=== PATIENT | female | born 1990 | race Caucasian/White ===

== ENCOUNTER 2017-02-27 16:22 | Inpatient (IN) | payer MEDICAID ==
[~2017-02-27] VITALS: Ht 149.9 cm; Wt 64.7 kg
[2017-03-05 16:34] VITALS: Ht 149.9 cm; Wt 64.7 kg
[2017-03-05 16:35] VITALS: BP 135/89; PULSE 86; RESP 16
[2017-03-05] MEDS ORDERED: CARBOPROST 250 MCG INJ IM PRN (17:00)
[2017-03-05] MEDS ORDERED: HYDROCODONE/APAP (5/325) TAB PO PRN (17:00)
[2017-03-05] MEDS ORDERED: OXYTOCIN 30 UNITS/LR 500 ML IV SCH ×2 (17:00→18:00)
[2017-03-05] MEDS ORDERED: OXYTOCIN 30 UNITS/LR 500 ML IV PRN (17:00)
[2017-03-05] MEDS ORDERED: BUTORPHANOL 2 MG INJ IV PRN (17:00)
[2017-03-05] MEDS ORDERED: IBUPROFEN 600 MG TAB PO PRN (17:00)
[2017-03-05] MEDS ORDERED: DINOPROSTONE 10 MG VAG SUPP VAG ONE (17:00)
[2017-03-05] MEDS ORDERED: MISOPROSTOL 200 MCG TAB PR PRN (17:00)
[2017-03-05] MEDS ORDERED: LIDOCAINE 1% (MPF) 30 ML INJ INJ PRN (17:00)
[2017-03-05] MEDS ORDERED: METHYLERGONOVINE 0.2 MG INJ IM PRN (17:00)
[2017-03-05] MEDS: LACTATED RINGER'S 1,000 ML IV SCH ×2 (17:09→22:38)
--- NOTE | 2017-03-05 17:24 | RADRPT ---
PROCEDURE: US OB. CLINICAL INDICATION: Post dates. TECHNIQUE: Multiple sonographic images of the uterus were obtained. The images were revi ewed on a PACS workstation. COMPARISON: No prior studies are available for comparison. FINDINGS: There is a single live intrauterine gestation. heart rate is 143 beats per minute. Measurements were made in order to determine age. The results are as follows: BPD = 9.09 cm. HC = 33.03 cm. AC = 34.79 cm. FL = 7.52 cm. Estimated weight is 3449 +/- 517 grams. LMP growth percentile is 26 %. Menstrual age by ultrasound dates is 37 weeks 6 days. The estimated date of delivery is 03/20/2017. Position is cephalic and placenta is anterior fundal grade III. There is no evidence for an abruptio n or placenta previa. IMPRESSION: 1. Single live intrauterine gestation of 37 weeks 6 days menstrual age by ultrasound dates. 2. The estimated date of delivery is 03/20/2017. RPTAT: QQ .Maynor Linares MD, Date Time Electronically viewed and signed by .Maynor Linares MD, on 03/05/2017 17:24 .R/
--- NOTE | 2017-03-05 17:28 | RADRPT ---
PROCEDURE: US biophysical profile. CLINICAL INDICATION: Post dates. TECHNIQUE: Multiple sonographic images of the uterus were obtained. The images were revi ewed on a PACS workstation. COMPARISON: No prior studies are available for comparison. FINDINGS: There is a single live intrauterine gestation. heart rate is 143 beats per minute. The position is cephalic. The placenta is fundal anterior grade III with no abruption or previa. The ADRIA is 0.8 cm. (Normal = 5-20 cm.) Breathing Movement: 2 Gross Body Movement: 2 Tone: 2 Qualitative Amniotic Fluid Volume: 0 TOTAL: 6 IMPRESSION: 1. The biophysical score is 6/8. 2. Oligohydramnios. RPTAT: QQ .Maynor Linares MD, Date Time Electronically viewed and signed by .Maynor Linares MD, on 03/05/2017 17:28 .R/
[2017-03-05] MEDS ORDERED: LACTATED RINGER'S 1,000 ML IV PRN (19:00)
[2017-03-05] MEDS ORDERED: TERBUTALINE 1 ML ONE (22:15)
[2017-03-05] MEDS ORDERED: TERBUTALINE 1 MG/ML INJ SC ONE (22:30)
[2017-03-06] VITALS (11 sets, daily range): BP systolic 116–154; BP diastolic 72–92; PULSE 73–99; RESP 16–20
[2017-03-06] MEDS: LACTATED RINGER'S 1,000 ML IV SCH (00:51)
[2017-03-06] MEDS ORDERED: CEFAZOLIN 2 GM/50 ML (PMX) 50 ML IV SCH (07:00)
[2017-03-06] MEDS ORDERED: OXYTOCIN 30 UNITS/LR 500 ML BAG IV ONE (07:00)
[2017-03-06] MEDS ORDERED: morphine SULFATE/PF (10 MG/10 ML) INJ ONE (08:34)
[2017-03-06] MEDS ORDERED: OXYTOCIN 10 UNIT INJ ONE (08:34)
[2017-03-06] MEDS ORDERED: ONDANSETRON 4 MG INJ ONE ×2 (08:34→09:06)
[2017-03-06] MEDS ORDERED: PHENYLephrine (100 MCG/ML) 5ML SYG ONE (08:34)
[2017-03-06] MEDS ORDERED: METOCLOPRAMIDE 10 MG INJ ONE (09:28)
[2017-03-06] MEDS ORDERED: DEXAMETHASONE 4 MG/ML 1 ML INJ ONE (09:31)
[2017-03-06] MEDS: OXYTOCIN 30 UNITS/LR 500 ML IV SCH ×4 (10:11→20:06)
--- NOTE | 2017-03-06 10:13 | HP ---
Date/Time of Note Date/Time of Note DATE: 03/06/17 TIME: 08:47 OB - History Hx of Present Free Text/Dictation 26 years old female EDC February 27, 2017 admitted to [facility] at 41 week gestation suspected mild to moderate to moderate PIH, low ADRIA .08, 2 occasions of rather long variable deceleration for evaluation and induction of labor, after admission patient patient underwent Pitocin challenge test with good tolerance ,cervical examination on admission cervix 1 cm dilated vertex at -1 -2 station, she was started on low- dose Pitocin induction ,during the course of induction she had 2 episodes of deceleration lasting 8-10 minutes last night and early this morning, baby,s intolerance to contraction discussed with the patient and decision for primary C -section made, complication of the surgery including but not limited to bowel and bladder injury infection hemorrhage wound hematoma explained, all her question answered , she is willing to proceed with the operation Estimated Due Date: Feb 27, 2017 : 1 Para: 0 Care: Limited Care Ultrasounds: Normal mid trimester US Obstetrical Complications: None Medical Complications: None Past Family/Social History * Past Medical, Surgical, Family and Obstetric Histories reviewed from chart. Rubella: immune RPR/VDRL: Negative GBS Status: Negative HBsAG: Negative OB Admission Exam Vital Signs Vital Signs Vital Signs Date Time Temp Pulse Resp B/P Pulse Ox O2 Delivery O2 Flow Rate FiO2 03/05/17 16:35 98.3 86 16 135/89 Physical Exam Heart: Rhythm Normal Abdomen: WNL Extremities: Normal Reflexes: Normal Cervical Dilatation: 1cm Effacement: 50% Station: -2 Membranes: Intact Heart Rate: 130's Accelerations: Accelerations Present Decelerations: Variable Decelerations Varibility: Moderate Contractions on Admission: None Intensity: Mild Last 72 hours Lab Results CBC & BMP 03/05/17 16:40 Liver Function Test 03/05/17 16:40 Alanine Aminotransferase (ALT/SGPT) 13 Albumin 3.3 Alkaline Phosphatase 231 H Aspartate Amino Transf (AST/SGOT) 24 Direct Bilirubin 0.00 Total Protein 6.7 OB Assessment/Plan Reason for admission: other (41 weeks gestation admitted for induction of labor ) Other plan: 26 years old female EDC February 27, 2017 admitted to [facility] at 41 weeks gestation, underwent oxytocin challenge test which baby tolerated well then started on low-dose Pitocin induction had one episode of prolong variable deceleration last night, low-dose Pitocin induction stopped, patient continued having mild contraction on her own until she had another episode of variable deceleration lasting 10 minutes, baby's intolerance to labor contractions discussed with the mother she consented for operative delivery by complication of the surgery including but not limited bowel bladder injury infection hemorrhage and hematoma also complication that may arise from her -induced hypertension, risks involved with this condition explained to her and she is willing to go ahead with the operation CHARITY BERGER MD Mar 06, 2017 08:58
[2017-03-06] MEDS: MAGNESIUM SULFATE 20 GM/500 ML 500 ML IV SCH ×2 (10:20→20:08)
--- NOTE | 2017-03-06 10:22 | OPR ---
Operative Report Planned Procedure Free Text/Dictation 26 years old EDC February 27, 2017 complicated with moderate PIH category 3 heart tracing 2 episodes of prolonged 10 minutes deceleration during the labor is undergoing a primary with category 3 heart tracing Procedure date Mar 06, 2017 Procedure(s) Primary Performed by see signature line Assisting provider: ADRIAN GANDARA MD Anesthesiologist: MARY BETH ARANDA MD Pre-procedure diagnosis 41 weeks category 3 heart tracing, -induced hypertension , intolerance to contraction, failed induction Anesthesia Type: epidural Procedure Description Under satisfactory epidural [] anesthesia, the patient was prepped and draped and placed in a supine position, tilted to the left. Pfannenstiel incision was made, carried through the subcutaneous tissue. Bleeders brought under control with electrocautery. Fascia incised to the length of the incision. Rectus muscles from the fascia, divided midline. Peritoneum exposed, entered through a transverse incision. Exploration of abdomen revealed gravid uterus normal-appearing tubes and ovaries. Bladder flap was developed. Transverse incision was made in the lower segment of the uterus. Amniotic sac ruptured. [ Thick meconium stained] amniotic fluid noted. Live baby boy was delivered from unengaged vertex [] Nasal oropharyngeal suction was performed with team present at the site. baby handed to the team for immediate attention. The placenta was delivered manually intact deep meconium stain sent to the pathology. Uterine cavity cleaned with wet sponge and drainage established. Uterus closed in 2 layers using [Monocryl #1] in continuous fashion. Peritoneal cavity irrigated with warm saline. Sponge, needle and instrument count reported to be correct. Abdominal peritoneum closed with [0 chromic catgut] continuously. Rectus muscle approximated with [2-0 chromic catgut]. Fascia closed with [#1 PDS], cutaneous tissue approximated with few interrupted 2-0 chromic catgut skin closed with N sorb. Estimated blood loss 600 []mL. Urine bag contained 200 []mL of clear urine patient tolerated procedure well transferred to recovery room in good condition Post-Procedure Findings: Live Baby boy 8 and 9 Estimated blood loss: other (600 cc) Specimen(s): no Grafts/Implants: no Complication(s): no Pt Condition post procedure: stable Physician Certification I, the undersigned physician, hereby certify that I have discussed the procedure described in this consent form with this patient (or the patient's legal housing management representative), including: * The risk and benefits of the procedure; * Any adverse reactions that may reasonably be expected to occur; * Any alternative efficacious methods of treatment which may be medically viable ; * The potential problems that may occur during recuperation; * Potential for blood transfusion and associated risks/benefits; and * Any research or economic interest I may have regarding this treatment. I further certify that the patient/legally responsible person was encouraged to ask question and that all questions were answered. CHARITY BERGER MD Mar 06, 2017 10:21
[2017-03-06] MEDS ORDERED: NALOXONE (0.4 MG/ML) INJ IV PRN ×2 (11:00→11:30)
[2017-03-06] MEDS ORDERED: DIPHENHYDRAMINE 50 MG INJ IV PRN (11:00)
[2017-03-06] MEDS ORDERED: ONDANSETRON 4 MG INJ IV PRN (11:00)
[2017-03-06] MEDS ORDERED: TRIMETHOBENZAMIDE 100 MG/ML VIAL IM PRN (11:30)
[2017-03-06] MEDS: KETOROLAC 30 MG INJ IV PRN ×3 (11:55→23:30)
[2017-03-06] MEDS ORDERED: CEFAZOLIN 1 GM/50 ML (PMX) 50 ML IVPB SCH (14:00)
[2017-03-06] MEDS ORDERED: METHYLERGONOVINE 0.2 MG INJ IM PRN (14:00)
[2017-03-06] MEDS ORDERED: CARBOPROST 250 MCG INJ IM PRN (14:00)
[2017-03-06] MEDS ORDERED: OXYCODONE/ACETAMINOPHEN (5/325) TAB PO PRN ×2 (14:00)
[2017-03-06] MEDS ORDERED: LANOLIN 7 GM TUBE TOP PRN (14:00)
[2017-03-06] MEDS ORDERED: MISOPROSTOL 200 MCG TAB PR PRN (14:00)
[2017-03-06] MEDS ORDERED: HYDROCODONE/APAP (5/325) TAB PO PRN ×2 (14:00)
[2017-03-06] MEDS ORDERED: OXYTOCIN 30 UNITS/LR 500 ML IV PRN (14:00)
[2017-03-06] MEDS: SENNA/DOCUSATE NA (8.6MG/50MG) TAB PO SCH (21:48)
[2017-03-07] MEDS: OXYTOCIN 30 UNITS/LR 500 ML IV SCH ×4 (01:21→09:59)
[2017-03-07 04:05] VITALS: BP 114/69; PULSE 91; RESP 18
[2017-03-07] MEDS: KETOROLAC 30 MG INJ IV PRN (05:31)
[2017-03-07 07:50] VITALS: BP 118/81; PULSE 88; RESP 16
[2017-03-07] MEDS: SENNA/DOCUSATE NA (8.6MG/50MG) TAB PO SCH ×2 (08:36→21:14)
[2017-03-07] MEDS ORDERED: INFLUENZA VIRUS VACCINE 0.5 ML SYG IM* ONE (09:00)
[2017-03-07] MEDS: IBUPROFEN 600 MG TAB PO SCH ×3 (11:21→23:28)
--- NOTE | 2017-03-07 12:15 | QN ---
Documentation Comment pod1` pt doing well vss exam wnl CDI a/p pod1 continue care MARIN BARKER MD Mar 07, 2017 12:15
--- NOTE | 2017-03-07 12:15 | QN ---
Documentation Comment pod1` pt doing well vss exam wnl CDI a/p pod1 continue care MARIN BARKER MD Mar 07, 2017 12:15
--- NOTE | 2017-03-07 12:15 | QN ---
Documentation Comment pod1` pt doing well vss exam wnl CDI a/p pod1 continue care MARIN BARKER MD Mar 07, 2017 12:15
[2017-03-07 15:53] VITALS: BP 121/57; PULSE 88; RESP 18
[2017-03-07 19:35] VITALS: PULSE 96; RESP 19
[2017-03-07 23:50] VITALS: BP 113/77; PULSE 81; RESP 21
[2017-03-08 04:30] VITALS: BP 109/65; PULSE 80; RESP 19
[2017-03-08] MEDS: IBUPROFEN 600 MG TAB PO SCH ×4 (05:37→23:39)
[2017-03-08 08:00] VITALS: BP 124/82; PULSE 89; RESP 18
[2017-03-08] MEDS: SENNA/DOCUSATE NA (8.6MG/50MG) TAB PO SCH ×2 (09:23→21:12)
--- NOTE | 2017-03-08 09:50 | QN ---
Documentation Comment Post day 2 Afebrile Vital signs are stable Abdomen soft, incision dry, bowel sounds present, normal bowel movement Extremities normal None of possible discharge CHARITY Knowles MD Mar 08, 2017 09:50
[2017-03-08 16:34] VITALS: BP 122/71; PULSE 93; RESP 18
[2017-03-08 19:35] VITALS: BP 131/84; PULSE 96; RESP 18
[2017-03-09 04:10] VITALS: BP 126/80; PULSE 90; RESP 18
[2017-03-09] MEDS: IBUPROFEN 600 MG TAB PO SCH ×2 (06:11→12:07)
[2017-03-09 08:00] VITALS: BP_SYST 120; BP_SYST 129; BP_DIAS 71; PULSE 79; PULSE 80; RESP 17
[2017-03-09] MEDS ORDERED: DIPHTH/TET/ACEL PERTUSS (ADULT) 0.5 ML VIAL IM* ONE (09:00)
[2017-03-09] MEDS: SENNA/DOCUSATE NA (8.6MG/50MG) TAB PO SCH (09:37)
--- NOTE | 2017-03-09 09:59 | DS ---
Date/Time of Note Date/Time of Note DATE: 03/09/17 TIME: 09:57 Discharge Summary Admission/Discharge Info Admit Date/Time Mar 05, 2017 at 16:29 Discharge Date/Time March 09 at 10 AM Discharge Diagnosis Post primary day 3 Patient Condition: Good Procedures Primary Hx of Present Illness Term nonreassuring heart tracing during labor Hospital Course Satisfactory uneventful Follow-up Plan Post instructions given recommended to make appointment to be seen at the clinic in 1 week Primary Care Provider Care Physician No Primary Time spent on discharge: < 30 minutes CHARITY BERGER MD Mar 09, 2017 09:59
== END 2017-03-09 16:16 | disposition home or self-care (01) | DRG 766 ==
LOC: EDSTATUS 16:28 → L-D 03-05 16:29 → PP1 03-06 12:58
PROVIDERS: ADMIT Obstetrics & Gynecology; ATTEND Obstetrics & Gynecology
PROC: 10D00Z1 Extraction of Products of Conception, Low, Open Approach (ICD-10-PCS; principal; 2017-03-06)
DX: O13.4 Gestational [pregnancy-induced] hypertension without significant proteinuria, complicating childbirth (principal); O61.8 Other failed induction of labor; O76 Abnormality in fetal heart rate and rhythm complicating labor and delivery; Z37.0 Single live birth; Z3A.41 41 weeks gestation of pregnancy
CPT/HCPCS: 76815; 76818; 80053; 81001; 83735; 84560; 85025; 85610; 85730; 86592; 86850; 86900; 86901; 88307; 90686; 90715; 94760; 99464; J0595; J0690; J1100; J1885; J2274; J2370; J2405; J2590; J2765; J3105; J3250; J3475; J7120